=== PATIENT | male | born 1990 | race Two or more races ===

== ENCOUNTER 2019-10-20 06:27 | Day surgery (SDC) | payer OTHER ==
[~2019-10-20] VITALS: Ht 172.7 cm; Wt 74.8 kg
[2019-10-20] VITALS (11 sets, daily range): BP systolic 117–132; BP diastolic 66–86
--- NOTE | 2019-10-20 06:51 | Pre-Procedure Note/Attestation ---
Pre-Procedure Note/Attestation Complete Prior to Procedure Planned Procedure: not applicable Procedure Narrative: Pilonidal cyst excision Indications for Procedure Pre-Operative Diagnosis: Pilonidal cyst Attestation I attest that I discussed the nature of the procedure; its benefits; risks and complications; and alternatives (and the risks and benefits of such alternatives ), prior to the procedure, with the patient (or the patient's legal accounts receivable representative). I attest that, if there was a reasonable possibility of needing a blood transfusion, the patient (or the patient's legal accounts receivable representative) was given the [facility] standardized written summary, pursuant to the Suman Devante Blood Safety Act ([place] Health and Safety Code # 1645, as amended). I attest that I re-evaluated the patient just prior to the surgery and that there has been no change in the patient's H&P, except as documented below: Rhonda Williamson MD Oct 20, 2019 06:51
[2019-10-20] MEDS ORDERED: Bupivacaine w/Epi 0.5% 30ml Vial INJ ONE (07:24)
[2019-10-20] MEDS ORDERED: Hydrogen Peroxide 473ml Bottle TOPIC ONE (07:24)
[2019-10-20] MEDS ORDERED: Ropivacaine 5mg/ml Vial 20ml INJ ONE ×2 (07:31→07:33)
[2019-10-20] MEDS ORDERED: EPINEPHrine 1mg/1ml Amp ONE (07:36)
[2019-10-20] MEDS ORDERED: NS Irrig 1000ml IRRIG ONE ×2 (07:38→08:31)
[2019-10-20] MEDS ORDERED: Alfentanil 2ml Inj ONE (07:55)
[2019-10-20] MEDS ORDERED: Lidocaine 1% Plain 30 ml INJ ONE ×2 (07:56→09:05)
[2019-10-20] MEDS ORDERED: cefOXitin 1gm Inj ONE (07:57)
[2019-10-20] MEDS ORDERED: LR 1000ml ONE (08:00)
[2019-10-20] MEDS ORDERED: Sterile Water Irrig 1000ml IRRIG ONE (08:00)
[2019-10-20] MEDS ORDERED: Sodium Chloride 10ml vial INJ ONE (08:02)
[2019-10-20] MEDS ORDERED: LR 1000ml 1,000 ML IVLG SCH (08:11)
--- NOTE | 2019-10-20 08:13 | Anethesia Preoperative Eval ---
Anesthesia Pre-op PMH/ROS General Date of Evaluation: Oct 20, 2019 Time of Evaluation: 08:04 Anesthesiologist: Aakash ASA Score: ASA 2 Mallampati Score Class I : Soft palate, uvula, fauces, pillars visible Class II: Soft palate, uvula, fauces visible Class III: Soft palate, base of uvula visible Class IV: Only hard plate visible Mallampati Classification: Class I Surgeon: Teri Diagnosis: Pilonidal Cyst Surgical Procedure: Pilonidal Cyst Excision Anesthesia History: none Family History: no anesthesia problems Allergies: Coded Allergies: No Known Allergies (Unverified , 10/18/19) Medications: see eMAR Patient NPO?: Yes Past Medical History Gastrointestinal/Genitourinary: Reports: other - GI Ulcer Anesthesia Pre-op Phys. Exam Physician Exam Last Vital Signs Date Time Temp Pulse Resp B/P (MAP) Pulse Ox O2 Delivery O2 Flow Rate FiO2 10/20/19 06:49 97.0 59 18 122/75 100 Room Air Constitutional: NAD Neurologic: CN 2-12 intact Cardiovascular: RRR Respiratory: CTA Gastrointestinal: S/NT/ND Airway Exam Mallampati Score: Class II MO: full ROM: full Teeth: intact Anesthesia Pre-op A/P Risk Assessment & Plan Assessment: ASA 2 Plan: TIVA Status Change Before Surgery: No Pre-Antibiotics Dru gram Cefoxitin IV Given Within 1 Hr of Incision: Yes Time Given: 08:17 Fredis Finn MD Oct 20, 2019 08:13
[2019-10-20] MEDS ORDERED: DiphenhydrAMINE 50mg/ml Inj IVP PRN (08:15)
[2019-10-20] MEDS ORDERED: fentaNYL 100 mcg/2 mL IV PRN (08:15)
[2019-10-20] MEDS ORDERED: Labetalol 5mg/ml 20ml vial IV PRN (08:15)
[2019-10-20] MEDS ORDERED: Acetaminophen (Non formulary) 100 ML IV ONE (08:15)
[2019-10-20] MEDS ORDERED: oxyCODONE HCL/Acetaminophen 5/325mg ORAL PRN (08:15)
[2019-10-20] MEDS ORDERED: Ketorolac 30mg Inj IV PRN ×2 (08:15)
[2019-10-20] MEDS ORDERED: HYDROcodone/Acetamin 7.5/325 tab ORAL PRN (08:15)
[2019-10-20] MEDS ORDERED: Meperidine 25mg/0.5ml Inj (FOR RIGORS ONLY) IV PRN (08:15)
[2019-10-20] MEDS ORDERED: Hydromorphone 0.5mg/0.5ml inj IVP PRN (08:15)
[2019-10-20] MEDS ORDERED: HYDROcodone/Acetamin 5/325 tab ORAL PRN (08:15)
[2019-10-20] MEDS ORDERED: LORazepam Inj 2mg/ml 1ml IV PRN (08:15)
[2019-10-20] MEDS ORDERED: Metoclopramide 10mg/2ml Inj IVP PRN (08:15)
[2019-10-20] MEDS ORDERED: Atropine Sulfate 0.4mg/ml inj IVP PRN (08:15)
[2019-10-20] MEDS ORDERED: Midazolam 2mg/2ml Inj IVP PRN (08:15)
--- NOTE | 2019-10-20 08:41 | Immediate Post-Op Evaluation ---
Immediate Post-Op Evalulation Immediate Post-Op Evalulation Procedure: Pilonidal Cyst Excision Date of Evaluation: Oct 20, 2019 Time of Evaluation: 09:49 IV Fluids: 900 LR Blood Products: 0 Estimated Blood Loss: 20 Urinary Output: 0 Blood Pressure Systolic: 119 Blood Pressure Diastolic: 74 Pulse Rate: 64 Respiratory Rate: 16 O2 Sat by Pulse Oximetry: 100 Temperature (Fahrenheit): 98.1 Pain Score (1-10): 2 Nausea: No Vomiting: No Complications 0 Patient Status: awake, reacts, patent, none Hydration Status: adequate Drug: ! Gram Cefoxitin IV Given Within 1 Hr of Incision: Yes Time Given: 08:17 Fredis Finn MD Oct 20, 2019 08:41
--- NOTE | 2019-10-20 08:44 | 48 Hour Post Anesthesia Eval ---
Post Anesthesia Evaluation Procedure: Pilonidal Cyst Excision Date of Evaluation: Oct 20, 2019 Time of Evaluation: 12:05 Blood Pressure Systolic: 117 0: 72 Pulse Rate: 73 Respiratory Rate: 18 Temperature (Fahrenheit): 98.4 O2 Sat by Pulse Oximetry: 100 Airway: patent Nausea: No Vomiting: No Pain Intensity: 2 Hydration Status: adequate Cardiopulmonary Status: Stable Mental Status/LOC: patient returned to baseline Follow-up Care/Observations: 0 Post-Anesthesia Complications: 0 Follow-up care needed: ready to discharge Fredis Finn MD Oct 20, 2019 08:44
[2019-10-20] MEDS ORDERED: Flumazenil 0.5mg/5ml Inj IV ONE (09:32)
--- NOTE | 2019-10-20 09:40 | Brief Operative Note ---
Immediate Post Operative Note Operative Note Pre-op Diagnosis: Pilonidal cyst Procedure: Pilonidal cyst excision Post-op Diagnosis: same Post-op Diagnosis: same as pre-op Findings: consistent w/pre-op dx studies Surgeon: Rhonda Williamson MD Anesthesiologist: Fredis Finn MD Anesthesia: moderate sedation Specimen: yes Complications: none Condition: stable Fluids: see anesthesia record Estimated Blood Loss: minimal Drains: none Implant(s) used?: No Rhonda Williamson MD Oct 20, 2019 09:40
--- NOTE | 2019-10-20 12:15 | Operative Note - Dictated ---
DATE OF OPERATION: 10/20/2019 PREOPERATIVE DIAGNOSIS: Recurrent pilonidal cyst. POSTOPERATIVE DIAGNOSIS: Recurrent pilonidal cyst. PROCEDURE: Pilonidal cyst excision. SURGEON: Rhonda Williamson M.D. ANESTHESIOLOGIST: Fredis Finn MD. ANESTHESIA: Propofol sedation with local anesthetic. INDICATION FOR PROCEDURE: The patient is a 29-year-old male, who had a pilonidal cyst excision in 2013 in [facility]. The patient reports that the wound was left open with wet-to-dry packing. The patient reports that his pilonidal cyst has reopened in the last six months. He is found to have a 2 cm wound, which is still open with granulation tissue. The patient is very active and rides bike and exercises, and he requested re-excision of his pilonidal cyst. DESCRIPTION OF PROCEDURE: Upon consent of the patient, the patient was brought to the operating room and placed in the prone kenny-knife position on the operating table. Once adequate sedation had been established with propofol drip, the patient's buttocks were prepped and draped in usual surgical fashion. The patient was noted to have a 2 centimeter open wound in the midline from his previous surgery with foul-smelling wound. A 40 mL of 0.5% ropivacaine with epinephrine mixed with 8 mg of dexamethasone was used as a local anesthetic. An elliptical incision was made incorporating the old wound, granulation tissue and cyst cavity with old scar was excised and sent off the field as specimen. The wound was copiously irrigated and there was noted to be no remaining cyst or granulation tissue remaining. The wound was then closed in layers using 2-0 Vicryl suture interrupted for the deep layers and for the skin was 2-0 Prolene mattress sutures. A vessel loop was used to buttress the sutures to prevent digging into the skin and a sterile dry dressing was used as an outer dressing. Sponge, needle, and instrument counts were correct at the end the case. The patient was awakened from anesthesia and brought to postanesthesia recovery room in stable condition. ESTIMATED BLOOD LOSS: Less than 5 mL. DRAINS: None. SPECIMEN: Pilonidal cyst. COMPLICATIONS: None. Rhonda Williamson M.D. DR: RAGHAV JOB#: [id number] CC: Morales Zaidi M.D.
== END 2019-10-20 11:40 | disposition home or self-care (01) ==
LOC: SUR 06:27
DX: L05.91 Pilonidal cyst without abscess (principal)
CPT/HCPCS: 11770; 94003; J0131; J0171; J0694; J1100; J2001; J2250; J2704; J2795; J3490; J7120; 94150